=== PATIENT | female | born 1985 | race Caucasian/White ===

== ENCOUNTER 2016-11-09 20:51 | Emergency (ER) | payer MEDICAID, OTHER ==
[~2016-11-09] VITALS: Ht 170.2 cm; Wt 107.1 kg
[2016-11-09] MEDS ORDERED: ALBU0.63 NEB (21:47)
[2016-11-09] MEDS ORDERED: HYDROcodone/APAP 5/325 TABLET ONE (22:18)
[2016-11-09] MEDS ORDERED: KETOROLAC 30 MG/1 ML ONE (22:19)
[2016-11-09] MEDS ORDERED: KETOROLAC 30 MG/1 ML IM ONE (22:30)
[2016-11-09] MEDS ORDERED: HYDROcodone/APAP 5/325 TABLET PO ONE (22:30)
[2016-11-09 23:20] VITALS: BP 128/73
== END 2016-11-09 23:22 | disposition home or self-care (01) ==
LOC: ED 23:16
DX: S46.912A Strain of unspecified muscle, fascia and tendon at shoulder and upper arm level, left arm, initial encounter (principal); J45.909 Unspecified asthma, uncomplicated; F17.210 Nicotine dependence, cigarettes, uncomplicated; W19.XXXA Unspecified fall, initial encounter; Y93.89 Activity, other specified; Y99.0 Civilian activity done for income or pay; Y92.69 Other specified industrial and construction area as the place of occurrence of the external cause
CPT/HCPCS: 73030; 73060; 96372; 99284; J1885

== ENCOUNTER 2017-09-15 18:28 | Emergency (ER) | payer SELFPAY ==
[~2017-09-15] VITALS: Ht 170.2 cm; Wt 110.0 kg
[~2017-09-15 18:28] MED LIST: ALBU0.63 NEB
[2017-09-15] MEDS ORDERED: DEXAMETHASONE 4 MG TABLET PO ONE (19:00)
[2017-09-15] MEDS ORDERED: DEXAMETHASONE 4 MG TABLET ONE (19:01)
[2017-09-15 19:25] VITALS: BP 112/74
== END 2017-09-15 19:27 | disposition home or self-care (01) ==
LOC: ED 19:08
DX: J02.0 Streptococcal pharyngitis (principal)
CPT/HCPCS: 99283